=== PATIENT | female | born 1990 | race Caucasian/White ===

== ENCOUNTER → 2016-08-16 | Outpatient (CLI) | payer MEDICARE, MEDICAID | LOC: SP 12:52 | PROVIDERS: ATTEND Internal Medicine | DX: I82.4Z2 Acute embolism and thrombosis of unspecified deep veins of left distal lower extremity (principal); M79.89 Other specified soft tissue disorders | CPT/HCPCS: 93970; 93971 ==

== ENCOUNTER 2016-08-27 00:24 | Emergency (ER) | payer MEDICARE, MEDICAID ==
[2016-08-27] MEDS ORDERED: VALACYCLOVIR HCL 500 MG TABLET PO ONE (03:32)
[2016-08-27] MEDS ORDERED: AZITHROMYCIN 250 MG TABLET PO ONE (03:33)
[2016-08-27] MEDS ORDERED: LIDOCAINE 1% INJ-PF (10 MG/ML) 30 ML SDV INFIL ONE (03:33)
[2016-08-27] MEDS ORDERED: CEFTRIAXONE INJ 250 MG VIAL IM ONE (03:33)
--- NOTE | 2016-08-27 04:01 | ER Document Report ---
ED General - General Chief Complaint: Fever Stated Complaint: POSSIBLE STD,FEVER,ABDOMINAL PAIN Notes: Patient is a 26-year-old female who presents with complaint of concern that she might have herpes. She's a previous history of herpes. She does have a sexual partner. She is sexually active. She did have a fever today of 102.8 in triage. She's also had a sore throat. No cough. No congestion. No vomiting. No diarrhea. No abdominal pain. No other complaints at this time. TRAVEL OUTSIDE OF THE [place] IN LAST 30 DAYS: No - Related Data Allergies/Adverse Reactions: ibuprofen [From Motrin] Allergy (Mild, Verified 10/29/13 16:16) itching acetaminophen [From Tylenol] Allergy (Verified 05/24/14 21:46) Past Medical History - Social History Smoking Status: Unknown if Ever Smoked Frequency of alcohol use: None Drug Abuse: None Family History: CAD - Father, CVA, DM, Hyperlipidemia, Hypertension Patient has suicidal ideation: No Patient has homicidal ideation: No - Past Medical History Cardiac Medical History: Reports: Hx DVT - right leg 2012, right arm jul 2015 on lovenox Renal/ Medical History: Reports: Hx Kidney Stones. Denies: Hx Peritoneal Dialysis Past Surgical History: Reports: Hx Section, Hx Kidney (Renal Surgery) - 2008 kidney stones - Immunizations Hx Diphtheria, Pertussis, Tetanus Vaccination: Yes Review of Systems - Review of Systems Notes: My Normal Review Basic REVIEW OF SYSTEMS: CONSTITUTIONAL : Fever EENT: Sore throat CARDIOVASCULAR: Denies chest pain. RESPIRATORY: Denies cough, cold, or chest congestion. Denies shortness of breath, difficulty breathing, or wheezing. GASTROINTESTINAL: Denies abdominal pain. Denies nausea, vomiting, or diarrhea. Denies constipation. Last BM: GENITOURINARY: Some dysuria FEMALE GENITOURINARY: Pain and lesions on vaginal area. MUSCULOSKELETAL: Denies neck or back pain or joint pain or swelling. SKIN: Denies rash or skin lesions. NEUROLOGICAL: Denies altered mental status or loss of consciousness. Denies headache. Denies weakness or paralysis or loss of use of either side. Denies problems with gait or speech. Denies sensory or motor loss. ALL OTHER SYSTEMS REVIEWED AND NEGATIVE. Physical Exam - Vital signs Vitals: Temp Pulse Resp BP Pulse Ox 102.8 F H 119 H 20 121/71 99 08/27/16 00:42 02/19/17 00:42 08/27/16 00:42 08/27/16 00:42 08/27/16 00:42 - Notes Notes: General Appearance: Well nourished, alert, cooperative, no acute distress, mild obvious discomfort. Vitals: reviewed, See vital signs table. Head: no swelling or tenderness to the head Eyes: PERRL, EOMI, Conjuctiva clear Mouth: No decreasd moisture Throat: Slightly erythematous pharynx. Neck: Supple, no neck tenderness, No thyromegaly Lungs: No wheezing, No rales, No rhonci, No accessory muscle use, good air exchange bilaterally. Heart: Normal rate, Regular rythm, No murmur, no rub Abdomen: Normal BS, soft, No rigidity, No abdominal tenderness, No guarding, no rebound, no abdominal masses, no organomegaly Pelvic: External genitalia has multiple excoriated lesions with redness and some abnormal drainage consistent with herpes. Extremities: strength 5/5 in all extremities, good pulses in all extremities, no swelling or tenderness in the extremities, no edema. Skin: warm, dry, appropriate color, no rash Neuro: speech clear, oriented x 3, normal affect, responds appropriately to questions. Course - Vital Signs Vital signs: Temp Pulse Resp BP Pulse Ox 102.8 F H 119 H 20 121/71 99 08/27/16 00:42 08/27/16 00:42 08/27/16 00:42 08/27/16 00:42 08/27/16 00:42 - Transfer of Care Notes: 08/27/16 05:45 Patient is rash or consistent with herpes infection. She'll be treated with acyclovir. She's encouraged to follow closely with her primary care doctor for reevaluation and continued treatment with acyclovir. She does have a fever upon arrival. She clinically she looks very well and is not toxic or septic appearing. I feel that she is safe to be discharged home. Encourage her to return to ER she has any worsening of her symptoms or feels unwell. Patient strongly encouraged to talk to her sexual partner to have him to test. Patient agrees with plan and will be discharged home. Dictation of this chart was performed using voice recognition software; therefore, there may be some unintended grammatical errors. Discharge - Discharge Clinical Impression: Herpes Fever Qualifiers: Fever type: unspecified Qualified Code(s): R50.9 - Fever, unspecified Condition: Good Disposition: HOME, SELF-CARE Additional Instructions: Herpes Simplex You have been diagnosed as having a herpes virus infection. The herpes ( "cold sore") virus usually infects the areas around the mouth. However, it can cause infection on any skin surface. It's particularly dangerous if infection occurs in the eye. On the initial infection, herpes blisters erupt over a large area. There is usually fever and aching. This infection takes about 14 days to resolve. After the initial infection, herpes sores can erupt on small areas (usually the lips), then heal in about a week. Sunburn, fever, local irritation, or even emotions can provoke a "fever blister" attack of herpes. Initial herpes infections can be treated with medication if severe. Subsequent attacks are usually given only local care to reduce symptoms; however , the physician may decide to prescribe anti-viral medication if your case warrants it. Call the doctor if you are worsening in any way. Please return to ER immediately if you have worsening fevers not responding to Tylenol, spreading of your rash, or if you feel that you are worsening in any way. Please take the medication as prescribed. Please follow-up with your physician early this week for reevaluation. After your initial course of acyclovir is completed they will most likely place you on a lower dose long- term course to help prevent recurrent outbreaks. Please inform your sexual partner to be treated. We did treat you prophylactically for gonorrhea and chlamydia. You can call [phone]. This phone number will give you the results of your gonorrhea and chlamydia culture. Prescriptions: Acyclovir [Acyclovir 400 mg Tablet] 400 mg PO TID #30 tablet Referrals: MARIBETH NEGRON MD [Primary Care Provider] - Follow up in 3-5 days
[2016-08-27] MEDS ORDERED: ONDANSETRON ODT 4 MG TAB (6 TAB/DSPK) PO PRN (05:12)
[2016-08-27] MEDS ORDERED: ONDANSETRON 4 MG TAB.RAPDIS ONE (05:14)
[2016-08-27 05:25] LABS: CHLAM PCR NOT DETECTED (NOT DETECT)
[2016-08-27 05:53] VITALS: BP 115/75
== END 2016-08-27 05:52 | disposition home or self-care (01) ==
LOC: ER 00:24
DX: R50.9 Fever, unspecified (principal); B00.9 Herpesviral infection, unspecified; J02.9 Acute pharyngitis, unspecified; R30.0 Dysuria; Z88.6 Allergy status to analgesic agent; Z86.718 Personal history of other venous thrombosis and embolism
CPT/HCPCS: 99284; 96372; 87070; 87880; 87491; 87591; A9270 ×3; J3490; J0696

== ENCOUNTER 2016-11-13 23:45 | Emergency (ER) | payer MEDICARE, MEDICAID ==
[2016-11-13 23:55] VITALS: BP 114/59
[2016-11-14] MEDS ORDERED: FAMOTIDINE 20 MG TABLET PO ONE (00:32)
[2016-11-14] MEDS ORDERED: DIPHENHYDRAMINE HCL 50 MG CAPSULE PO ONE (00:32)
--- NOTE | 2016-11-14 00:47 | ER Document Report ---
ED Skin Rash/Insect Bite/Abscs - General Chief Complaint: Insect Bite Stated Complaint: POSSIBLE ALLERGIC REACTION Time Seen by Provider: 11/14/16 00:05 Mode of Arrival: Ambulatory Information source: Patient Notes: 26-year-old female presented to ED for inset bites to both arms abdomen chest and back. States she went to her friend's house who had bedbugs and will fleas. States she came home with bug bites and has had morbid bite since she came home. States she saw some fleas in her house after she came home. TRAVEL OUTSIDE OF THE [place] IN LAST 30 DAYS: No - HPI Patient complains to provider of: Insect bite Onset: Yesterday Onset/Duration: Persistent Quality of pain: No pain Severity: None Pain Level: Denies Skin Character: Rash Quality of rash: Itchy Identify cause: Yes - states she went to her friend's house who had fleas Exacerbated by: Denies Relieved by: Denies Similar symptoms previously: No Recently seen / treated by doctor: No - Related Data Allergies/Adverse Reactions: ibuprofen [From Motrin] Allergy (Mild, Verified 11/13/16 23:55) itching acetaminophen [From Tylenol] Allergy (Verified 11/13/16 23:55) Past Medical History - General Information source: Patient - Social History Smoking Status: Never Smoker Cigarette use (# per day): No Chew tobacco use (# tins/day): No Smoking Education Provided: No Frequency of alcohol use: None Drug Abuse: None Lives with: Friend Family History: CAD - Father, CVA, DM, Hyperlipidemia, Hypertension Patient has suicidal ideation: No Patient has homicidal ideation: No - Past Medical History Cardiac Medical History: Reports: Hx DVT - right leg 2012, right arm jul 2015 on lovenox Pulmonary Medical History: Reports: None EENT Medical History: Reports: None Neurological Medical History: Reports: None Endocrine Medical History: Reports: Hx Hypothyroidism Renal/ Medical History: Reports: Hx Kidney Stones Malignancy Medical History: Reports: None GI Medical History: Reports: None Musculoskeltal Medical History: Reports None Skin Medical History: Reports None Psychiatric Medical History: Reports: None Traumatic Medical History: Reports: None Infectious Medical History: Reports: None Past Surgical History: Reports: Hx Section, Hx Kidney (Renal Surgery) - 2008 kidney stones - Immunizations Hx Diphtheria, Pertussis, Tetanus Vaccination: Yes Review of Systems - Review of Systems Constitutional: No symptoms reported EENT: No symptoms reported Cardiovascular: No symptoms reported Respiratory: No symptoms reported Gastrointestinal: No symptoms reported Genitourinary: No symptoms reported Female Genitourinary: No symptoms reported Musculoskeletal: No symptoms reported Skin: Other - Insect bites bilateral arms and legs abdomen chest and back Hematologic/Lymphatic: No symptoms reported Neurological/Psychological: No symptoms reported -: Yes All other systems reviewed and negative Physical Exam - Vital signs Vitals: Temp Pulse Resp BP Pulse Ox 98.2 F 62 16 114/59 L 97 11/13/16 23:49 11/13/16 23:49 11/13/16 23:49 11/13/16 23:49 11/13/16 23:49 Interpretation: Normal - General General appearance: Appears well, Alert - HEENT Head: Normocephalic, Atraumatic Eyes: Normal Pupils: PERRL - Respiratory Respiratory status: No respiratory distress Chest status: Nontender Breath sounds: Normal Chest palpation: Normal - Cardiovascular Rhythm: Regular Heart sounds: Normal auscultation Murmur: No - Abdominal Inspection: Normal Distension: No distension Bowel sounds: Normal Tenderness: Nontender Organomegaly: No organomegaly - Back Back: Normal, Nontender - Extremities General upper extremity: Normal inspection, Nontender, Normal color, Normal ROM , Normal temperature General lower extremity: Normal inspection, Nontender, Normal color, Normal ROM , Normal temperature, Normal weight bearing. No: Aidan's sign - Neurological Neuro grossly intact: Yes Cognition: Normal Orientation: AAOx4 [place] Coma Scale Eye Opening: Spontaneous Raheem Coma Scale Verbal: Oriented [place] Coma Scale Motor: Obeys Commands Raheem Coma Scale Total: 15 Speech: Normal Motor strength normal: LUE, RUE, LLE, RLE Sensory: Normal - Psychological Associated symptoms: Normal affect, Normal mood - Skin Skin Temperature: Warm Skin Moisture: Dry Skin Color: Normal Location of irregularity: Abdomen, Chest, Back, Extremities - Patient with the friend's house who had fleas she saw the fleas jumping after she came home she saw the fleas on in her house. Course - Vital Signs Vital signs: Temp Pulse Resp BP Pulse Ox 98.2 F 62 16 114/59 L 97 11/13/16 23:49 11/13/16 23:49 11/13/16 23:49 11/13/16 23:49 11/13/16 23:49 Discharge - Discharge Clinical Impression: insect bites multiple sites not infected Condition: Stable Disposition: HOME, SELF-CARE Instructions: Family Physicians / Practices Additional Instructions: Insect Bites You have been bitten by an insect. These bites can cause two types of swelling: an initial swelling due to insect saliva or injected poison, and a late reaction due to your body's allergic reaction. This initial local reaction may be uncomfortable but is not dangerous. Often there's an itchy "hive" at the bite location. This is treated with antihistamines, cold compresses, and resting the affected body part. The later reaction often develops about the second day. The entire area becomes very swollen, red, itchy, and tender. This is an allergic reaction. Your body is attacking the leftover insect saliva or venom. This type of allergy is unpleasant, but not dangerous. We treat this swelling with cortisone -type medicine. Sometimes we use antibiotics if we're worried about infection. Antihistamines help with the itch. If you develop a fever, chills, a red streak, or swollen glands in the area of the bite, infection may be starting. Return at once. ACID-SUPPRESSING MEDICATION: You have a prescription for medicine which reduces the stomach's secretion of acid. Examples include Zantac, Tagament, and Pepcid. These drugs are often used to allow healing of ulcers or esophagitis. They may be needed to prevent recurrence of ulcers in some patients, or to prevent damage from acid reflux in the esophagus. Take all medication as prescribed, even after the pain is gone. Regular antacids may be added as needed if you have symptoms while taking this medicine. These medications sometimes are prescribed for allergic reactions because they have anti-histaminic effects and relieve the rash and itching of the reaction. There are usually no side effects from this medication. But, in rare cases and particularly in the elderly, serious problems can occur. Contact your doctor if there is fever, rash, hallucinations, confusion, or unusual bruising. Contact your doctor at once if you develop lightheadedness, black or bloody stool, or bloody vomitus. USE OF DIPHENHYDRAMINE: The use of diphenhydramine (Benadryl) has been recommended to control allergic symptoms. The 25 mg strength is available over- the-counter, as well as the elixir. This antihistamine is used for many symptoms. It's useful for itching, watering eyes and nose, allergic swelling, hives, and insect stings. The medication can be repeated four times daily. Age Elixir (12.5 mg/tsp) 25 mg pill 2-3 yr 1/2 tsp 4-8 yr 1 tsp 9-14 yr 2 tsp one tab adult 1-2 tabs Antihistamines may cause drowsiness, especially with the first dose. Do not operate machinery or drive while under the effects of the medication. Do not combine the medication with alcohol, or with any other medication without talking to your doctor. FOLLOW-UP CARE: If you have been referred to a physician for follow-up care, call the physician s office for an appointment as you were instructed or within the next two days. If you experience worsening or a significant change in your symptoms, notify the physician immediately or return to the Emergency Department at any time for re-evaluation. Referrals: ASHLYN GUNN MD [Primary Care Provider] - Follow up as needed
== END 2016-11-14 00:48 | disposition home or self-care (01) ==
LOC: ER 23:45
DX: S40.862A Insect bite (nonvenomous) of left upper arm, initial encounter (principal); S40.861A Insect bite (nonvenomous) of right upper arm, initial encounter; S30.861A Insect bite (nonvenomous) of abdominal wall, initial encounter; S20.369A Insect bite (nonvenomous) of unspecified front wall of thorax, initial encounter; W57.XXXA Bitten or stung by nonvenomous insect and other nonvenomous arthropods, initial encounter; Y92.009 Unspecified place in unspecified non-institutional (private) residence as the place of occurrence of the external cause; Z88.6 Allergy status to analgesic agent
CPT/HCPCS: 99281; A9270 ×2

== ENCOUNTER 2016-12-24 18:11 | Emergency (ER) | payer MEDICARE, MEDICAID ==
--- NOTE | 2016-12-24 18:17 | ER Document Report ---
ED Medical Screen (RME) - General Stated Complaint: ALTERED MENTAL STATUS Time Seen by Provider: 12/24/16 18:14 Mode of Arrival: Wheelchair TRAVEL OUTSIDE OF THE [place] IN LAST 30 DAYS: No - HPI Patient complains to provider of: altered mental status Notes: 12/24/16 18:16 26-year-old female brought to the emergency room by a friend for complaints of altered mental status, patient had to be taken out of a private vehicle by security and nursing staff, she states that she feels tingly all over - Related Data Allergies/Adverse Reactions: ibuprofen [From Motrin] Allergy (Mild, Verified 11/13/16 23:55) itching acetaminophen [From Tylenol] Allergy (Verified 11/13/16 23:55) Past Medical History - Past Medical History Cardiac Medical History: Reports: Hx DVT - right leg 2012, right arm jul 2015 on lovenox Endocrine Medical History: Reports: Hx Hypothyroidism Renal/ Medical History: Reports: Hx Kidney Stones. Denies: Hx Peritoneal Dialysis Past Surgical History: Reports: Hx Section, Hx Kidney (Renal Surgery) - 2008 kidney stones - Immunizations Hx Diphtheria, Pertussis, Tetanus Vaccination: Yes
[2016-12-24 19:32] LABS: APPEARANCE,URINE SLIGHTLY-CLOUDY; BILIRUBIN,URINE NEGATIVE (NEGATIVE); GLUCOSE, URINE NEGATIVE (NEGATIVE); KETONES,URINE NEGATIVE (NEGATIVE); LEUKOCYTE ESTERASE,URINE TRACE (NEGATIVE); NITRITE,URINE NEGATIVE (NEGATIVE); PROTEIN,URINE NEGATIVE (NEGATIVE); URINE SPECIFIC GRAVITY 1.023
[2016-12-24 19:41] LABS: ABSOLUTE EOSINOPHILS # (AUTO) 0.1 10^3/uL (0.0-0.6); ABSOLUTE LYMPHOCYTES (AUTO) 1.8 10^3/uL (0.5-4.7); ABSOLUTE MONOCYTES (AUTO) 0.4 10^3/uL (0.1-1.4); ABSOLUTE NEUT (AUTO) 5.6 10^3/uL (1.7-8.2); BASOPHILS % (AUTO) 0.5 % (0-2); HEMATOCRIT 45.2 % (36.0-47.0); HEMOGLOBIN 14.9 g/dL (12.0-15.5); HGB HCT DIFFERENCE -0.5; LYMPHOCYTES % (AUTO) 22.5 % (13-45); MEAN CORPUSCULAR HEMOGLOBIN 29.3 pg (27.0-33.4); MEAN CORPUSCULAR VOLUME 89 fl (80-97); MONOCYTES % (AUTO) 5.2 % (3-13); RED BLOOD COUNT 5.08 10^6/uL (3.72-5.28); RED CELL DISTRIBUTION WIDTH 13.7 % (11.5-14.0); SEGMENTED NEUTROPHILS % (AUTO) 70.8 % (42-78); WHITE BLOOD COUNT 7.9 10^3/uL (4.0-10.5)
[2016-12-24 19:48] LABS: ALANINE AMINOTRANSFERASE 33 U/L (9-52); ALBUMIN 4.6 g/dL (3.5-5.0); ALKALINE PHOSPHATASE 105 U/L (38-126); ANION GAP 15 (5-19); ASPARTATE AMINO TRANSFERASE 31 U/L (14-36); BILIRUBIN,DIRECT 0.4 mg/dL (0.0-0.4); BILIRUBIN,TOTAL 0.8 mg/dL (0.2-1.3); BLOOD UREA NITROGEN 11 mg/dL (7-20); CALCIUM 9.4 mg/dL (8.4-10.2); CARBON DIOXIDE 25 mmol/L (22-30); CHLORIDE 105 mmol/L (98-107); GLUCOSE 102 mg/dL (75-110); POTASSIUM 4.3 mmol/L (3.6-5.0); SODIUM 145.4 mmol/L (137-145); TOTAL PROTEIN 8.2 g/dL (6.3-8.2)
[2016-12-24 20:33] LABS: URINE BARBITURATES SCREEN NEGATIVE; URINE METHADONE SCREEN NEGATIVE; URINE OPIATES LOW NEGATIVE; URINE PHENCYCLIDINE SCREEN NEGATIVE
[2016-12-24] MEDS ORDERED: NORMAL SALINE 1000 ML 1,000 ML IV ONE (21:18)
--- NOTE | 2016-12-24 21:23 | ER Document Report ---
ED General - General Chief Complaint: Altered Mental Status Stated Complaint: ALTERED MENTAL STATUS Time Seen by Provider: 12/24/16 18:14 Mode of Arrival: Wheelchair Notes: Patient is a 26-year-old female that comes emergency department for chief complaint of "altered mental status". I asked patient if she can tell me what is going on if she states her "sugar problems". She states she thinks she has diabetes. Friend states that she noticed that when patient was lying down just before arrival that she closed her eyes and stopped responding. Friend states she thinks she passed out, she states she did not appear to be sleeping and was difficult to arouse. No fall or head injury. No fever, vomiting, or current symptoms reported. Upon arrival to the emergency department patient was apparently helped out of the car and complaining of feeling tingling in her extremities. Patient states she takes a blood thinner for history of DVT which developed while she was . TRAVEL OUTSIDE OF THE [place] IN LAST 30 DAYS: No - Related Data Allergies/Adverse Reactions: ibuprofen [From Motrin] Allergy (Mild, Verified 12/24/16 18:21) itching acetaminophen [From Tylenol] Allergy (Verified 12/24/16 18:21) Past Medical History - General Information source: Patient, Friend - Social History Smoking Status: Never Smoker Chew tobacco use (# tins/day): No Frequency of alcohol use: None Drug Abuse: None Lives with: Family Family History: CAD - Father, CVA, DM, Hyperlipidemia, Hypertension - Past Medical History Cardiac Medical History: Reports: Hx DVT - right leg 2012, right arm jul 2015 on lovenox Endocrine Medical History: Reports: Hx Hypothyroidism Renal/ Medical History: Reports: Hx Kidney Stones. Denies: Hx Peritoneal Dialysis Past Surgical History: Reports: Hx Section, Hx Kidney (Renal Surgery) - 2008 kidney stones - Immunizations Hx Diphtheria, Pertussis, Tetanus Vaccination: Yes Review of Systems - Review of Systems Constitutional: See HPI EENT: No symptoms reported Cardiovascular: See HPI Respiratory: No symptoms reported Gastrointestinal: No symptoms reported Genitourinary: No symptoms reported Female Genitourinary: No symptoms reported Musculoskeletal: No symptoms reported Skin: No symptoms reported Hematologic/Lymphatic: No symptoms reported Neurological/Psychological: See HPI Physical Exam - Vital signs Vitals: Temp Pulse Resp BP Pulse Ox 99 F 73 18 123/83 100 12/24/16 18:13 12/24/16 18:13 12/24/16 18:13 12/24/16 18:13 12/24/16 18:13 Interpretation: Normal - General General appearance: Appears well, Alert In distress: None - HEENT Head: Normocephalic, Atraumatic Eyes: Normal Extraocular movements intact: Yes Eyelashes: Normal Pupils: PERRL Nasal: Normal Mouth/Lips: Normal Mucous membranes: Normal Pharynx: Normal Neck: Normal - Respiratory Respiratory status: No respiratory distress Chest status: Nontender Breath sounds: Normal Chest palpation: Normal - Cardiovascular Rhythm: Regular. No: Tachycardia Heart sounds: Normal auscultation, S1 appreciated, S2 appreciated Murmur: No - Abdominal Inspection: Normal Distension: No distension Bowel sounds: Normal Tenderness: Nontender Organomegaly: No organomegaly - Back Back: Normal, Nontender - Extremities General upper extremity: Normal inspection, Nontender, Normal color, Normal ROM , Normal temperature General lower extremity: Normal inspection, Nontender, Normal color, Normal ROM , Normal temperature, Normal weight bearing. 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 Workup is also completely unremarkable including CBC, chemistry, urinalysis, urine drug screen, alcohol. Patient was given IV fluids. EKG sinus rhythm, normal CT interval, no T-wave inversion or ST segment changes in consecutive leads. On reexamination patient does not have any symptoms. She does ask questions, mainly about having diabetes and possibly needing treatments for this , I explained to her that she does not have evidence of this now, she should perform a glucose fasting test with primary. Patient's symptoms actually sound as if she was falling asleep, no syncopal episodes reported, no seizure symptoms reported, no headache, no indication for CT of the head or additional workup at this time. Discussed return precautions in detail, patient states understanding and agreement. - Vital Signs Vital signs: Temp Pulse Resp BP Pulse Ox 98.2 F 73 17 117/69 98 12/24/16 22:54 12/24/16 22:54 12/24/16 22:54 12/24/16 22:54 12/24/16 22:54 - Laboratory Result Diagrams: 12/24/16 19:08 12/24/16 19:03 Laboratory results interpreted by me: 12/24/16 12/24/16 19:03 19:03 Sodium 145.4 H Urine Urobilinogen 4.0 H Ur Leukocyte Esterase TRACE H Discharge - Discharge Clinical Impression: Transient alteration of awareness Condition: Stable Disposition: HOME, SELF-CARE Additional Instructions: Your workup today is normal other than showing some dehydration. Continue to rehydrate at home. The exact cause of your symptoms is uncertain, because of your recent sporadic blood sugars I recommend a fasting blood sugar with your primary care physician , follow-up with them for additional evaluation as well. Return to emergency department for any concerning symptoms including severe headache, fever, or any other concerning or worsening symptoms. Referrals: ASHLYN GUNN MD [Primary Care Provider] - Follow up as needed
[2016-12-24 23:03] VITALS: BP 117/69
--- NOTE | 2016-12-25 10:19 | EKG REPORT ---
SEVERITY:- ABNORMAL ECG - SINUS RHYTHM LAD, CONSIDER LEFT ANTERIOR FASCICULAR BLOCK : Confirmed by: Ana Francisco MD 25-Dec-2016 10:18:56
== END 2016-12-24 23:03 | disposition home or self-care (01) ==
LOC: ER 18:11
DX: R40.4 Transient alteration of awareness (principal); R20.2 Paresthesia of skin; I82.409 Acute embolism and thrombosis of unspecified deep veins of unspecified lower extremity; Z79.02 Long term (current) use of antithrombotics/antiplatelets; Z88.6 Allergy status to analgesic agent
CPT/HCPCS: 93005; 99285; 96360; 36415; 87086; 82962; 80307 ×2; 85025; 81025; 80053; 81001; 93010; J7030

== ENCOUNTER 2016-12-28 17:09 | Emergency (ER) | payer MEDICARE, OTHER, MEDICAID ==
[2016-12-28 18:25] LABS: ABSOLUTE EOSINOPHILS # (AUTO) 0.1 10^3/uL (0.0-0.6); ABSOLUTE LYMPHOCYTES (AUTO) 1.9 10^3/uL (0.5-4.7); ABSOLUTE MONOCYTES (AUTO) 0.4 10^3/uL (0.1-1.4); ABSOLUTE NEUT (AUTO) 6.4 10^3/uL (1.7-8.2); BASOPHILS % (AUTO) 0.5 % (0-2); EOSINOPHILS % (AUTO) 0.7 % (0-6); HEMATOCRIT 45.3 % (36.0-47.0); HEMOGLOBIN 15.1 g/dL (12.0-15.5); LYMPHOCYTES % (AUTO) 21.4 % (13-45); MEAN CORPUSCULAR HEMOGLOBIN 29.7 pg (27.0-33.4); MEAN CORPUSCULAR HGB CONC 33.3 g/dL (32.0-36.0); MEAN CORPUSCULAR VOLUME 89 fl (80-97); MONOCYTES % (AUTO) 4.2 % (3-13); RED BLOOD COUNT 5.07 10^6/uL (3.72-5.28); RED CELL DISTRIBUTION WIDTH 13.9 % (11.5-14.0); SEGMENTED NEUTROPHILS % (AUTO) 73.2 % (42-78); WHITE BLOOD COUNT 8.7 10^3/uL (4.0-10.5)
[2016-12-28 18:38] LABS: ALANINE AMINOTRANSFERASE 32 U/L (9-52); ALBUMIN 5.1 g/dL (3.5-5.0); ALCOHOL < 10 mg/dL (NONE DETECTED); ALKALINE PHOSPHATASE 109 U/L (38-126); ANION GAP 14 (5-19); ASPARTATE AMINO TRANSFERASE 25 U/L (14-36); BILIRUBIN,DIRECT 0.3 mg/dL (0.0-0.4); BILIRUBIN,TOTAL 0.9 mg/dL (0.2-1.3); BLOOD UREA NITROGEN 13 mg/dL (7-20); CALCIUM 9.9 mg/dL (8.4-10.2); CARBON DIOXIDE 29 mmol/L (22-30); CHLORIDE 101 mmol/L (98-107); CREATININE RESULT 0.94 mg/dL (0.52-1.25); GLUCOSE 81 mg/dL (75-110); POTASSIUM 3.9 mmol/L (3.6-5.0); SODIUM 144.3 mmol/L (137-145); TOTAL PROTEIN 9.2 g/dL (6.3-8.2)
[2016-12-28 19:03] LABS: APPEARANCE,URINE CLOUDY; BILIRUBIN,URINE NEGATIVE (NEGATIVE); GLUCOSE, URINE NEGATIVE (NEGATIVE); KETONES,URINE NEGATIVE (NEGATIVE); LEUKOCYTE ESTERASE,URINE SMALL (NEGATIVE); NITRITE,URINE NEGATIVE (NEGATIVE); PROTEIN,URINE 30 mg/dL (NEGATIVE); URINE SPECIFIC GRAVITY 1.015; UROBILINOGEN,URINE NEGATIVE mg/dL (<2.0)
[2016-12-28 19:07] LABS: URINE BARBITURATES SCREEN NEGATIVE; URINE METHADONE SCREEN NEGATIVE; URINE OPIATES LOW NEGATIVE; URINE PHENCYCLIDINE SCREEN NEGATIVE
--- NOTE | 2016-12-28 19:14 | ER Document Report ---
ED General - General Chief Complaint: Psych Problem Stated Complaint: SUICIDAL IDEATION Time Seen by Provider: 12/28/16 18:12 Mode of Arrival: Medic Information source: Patient Notes: 26-year-old female with hx of anxiety bipolar depression presents after wanting to harm herself by overdosing on her blood thinner meds. pt states she did not take the meds , denies any other attempts. TRAVEL OUTSIDE OF THE U.S. IN LAST 30 DAYS: No - HPI Onset: Just prior to arrival Onset/Duration: Sudden Quality of pain: No pain Severity: Mild Pain Level: Denies Associated symptoms: Other Exacerbated by: Denies Relieved by: Denies Similar symptoms previously: Yes Recently seen / treated by doctor: Yes - Related Data Allergies/Adverse Reactions: ibuprofen [From Motrin] Allergy (Mild, Verified 12/28/16 17:17) itching Past Medical History - Social History Smoking Status: Never Smoker Cigarette use (# per day): No Chew tobacco use (# tins/day): No Smoking Education Provided: No Family History: CAD - Father, CVA, DM, Hyperlipidemia, Hypertension Patient has suicidal ideation: Yes Patient has homicidal ideation: No - Past Medical History Cardiac Medical History: Reports: Hx DVT - right leg 2012, right arm jul 2015 on lovenox Endocrine Medical History: Reports: Hx Hypothyroidism Renal/ Medical History: Reports: Hx Kidney Stones. Denies: Hx Peritoneal Dialysis Past Surgical History: Reports: Hx Section, Hx Kidney (Renal Surgery) - 2008 kidney stones - Immunizations Hx Diphtheria, Pertussis, Tetanus Vaccination: Yes Review of Systems - Review of Systems Notes: REVIEW OF SYSTEMS: CONSTITUTIONAL : Denies fever, chills, or sweats. Denies recent illness. EENT: Denies eye, ear, throat, or mouth pain or symptoms. Denies nasal or sinus congestion or discharge. Denies throat, tongue, or mouth swelling or difficulty swallowing. CARDIOVASCULAR: Denies chest pain. Denies palpitations or racing or irregular heart beat. Denies ankle edema. RESPIRATORY: Denies cough, cold, or chest congestion. Denies shortness of breath, difficulty breathing, or wheezing. GASTROINTESTINAL: Denies abdominal pain or distention. Denies nausea, vomiting , or diarrhea. Denies blood in vomitus, stools, or per rectum. Denies black, tarry stools. Denies constipation. GENITOURINARY: Denies difficulty urinating, painful urination, burning, frequency, blood in urine, or discharge. FEMALE GENITOURINARY: Denies vaginal bleeding, heavy or abnormal periods, irregular periods. Denies vaginal discharge or odor. MUSCULOSKELETAL: Denies back or neck pain or stiffness. Denies joint pain or swelling. SKIN: Denies rash, lesions or sores. HEMATOLOGIC : Denies easy bruising or bleeding. LYMPHATIC: Denies swollen, enlarged glands. NEUROLOGICAL: Denies confusion or altered mental status. Denies passing out or loss of consciousness. Denies dizziness or lightheadedness. Denies headache. Denies weakness or paralysis or loss of use of either side. Denies problems with gait or speech. Denies sensory loss, numbness, or tingling. Denies seizures. PSYCHIATRIC: admits to depression , SI ALL OTHER SYSTEMS REVIEWED AND NEGATIVE. PHYSICAL EXAMINATION: GENERAL: Well-appearing, well-nourished and in no acute distress. HEAD: Atraumatic, normocephalic. EYES: Pupils equal round and reactive to light, extraocular movements intact, conjunctiva are normal. ENT: Nares patent, oropharynx clear without exudates. Moist mucous membranes. NECK: Normal range of motion, supple without lymphadenopathy LUNGS: Breath sounds clear to auscultation bilaterally and equal. No wheezes rales or rhonchi. HEART: Regular rate and rhythm without murmurs ABDOMEN: Soft, nontender, nondistended abdomen. No guarding, no rebound. No masses appreciated. Female : deferred Musculoskeletal: Normal range of motion, no pitting or edema. No cyanosis. NEUROLOGICAL: Cranial nerves grossly intact. Normal speech, normal gait. Normal sensory, motor exams PSYCH: SI SKIN: Warm, Dry, normal turgor, no rashes or lesions noted. Dictation was performed using [employer] voice recognition software Physical Exam - Vital signs Vitals: Temp Pulse Resp BP Pulse Ox 98.3 F 65 16 120/71 98 12/28/16 17:13 12/28/16 17:13 12/28/16 17:13 12/28/16 17:13 12/28/16 17:13 Course - Re-evaluation Re-evalutation: 12/29/16 02:04 pt is medically stable but will require a mental health evaluation and will be held IVC as a result of her thoughts of wanting to harm herself - Vital Signs Vital signs: Temp Pulse Resp BP Pulse Ox 98.6 F 59 L 16 95/52 L 98 12/28/16 23:51 12/28/16 23:51 12/28/16 23:51 12/28/16 23:51 12/28/16 23:51 - Laboratory Result Diagrams: 12/28/16 18:00 12/28/16 18:00 Laboratory results interpreted by me: 12/28/16 12/28/16 18:00 18:00 Total Protein 9.2 H Albumin 5.1 H Urine Protein 30 H Urine Blood SMALL H Ur Leukocyte Esterase SMALL H Salicylates < 1.0 L Acetaminophen < 10 L Discharge - Discharge Clinical Impression: Suicidal ideation Condition: Stable Disposition: PSYCH HOSP/UNIT
--- NOTE | 2016-12-29 03:55 | EKG REPORT ---
SEVERITY:- ABNORMAL ECG - SINUS RHYTHM LAD, CONSIDER LEFT ANTERIOR FASCICULAR BLOCK : Confirmed by: Ana Francisco MD 29-Dec-2016 03:54:56
--- NOTE | 2016-12-29 15:35 | ER Document Report ---
ED Psych Disorder / Suicide - General Mode of Arrival: Medic Information source: Patient, Friend TRAVEL OUTSIDE OF THE U.S. IN LAST 30 DAYS: No - HPI Patient complains to provider of: Suicidal ideation <AUBREE AMEZCUA - Last Filed: 12/29/16 15:15> <NAIPHOENIX - Last Filed: 12/30/16 14:40> - General Chief Complaint: Psych Problem Stated Complaint: SUICIDAL IDEATION Time Seen by Provider: 12/28/16 18:12 - HPI Notes: 26-year-old female with hx of anxiety bipolar depression presents after wanting to harm herself by overdosing on her blood thinner meds. pt states she did not take the meds , denies any other attempts. Patient disclosed she was brought to [facility] by [facility] because she wanted to kill herself. She states she has felt this way for about 1 week. She states her plan was to overdose on her blood thinners. Patient continued to disclose that she used to go to [facility] many years ago however was thinking about going to [facility]. She does disclose that she had an appointment however was unable to go to the appointment; patient confirms she did not call to cancel and was a no-show. Patient disclosed she has been diagnosed as bipolar. Patient states that she does not think she gets in manic state. She continued disclosed that she gets very depressed and then when she starts to feel better she has suicidal ideation continues going up and down in that pattern. Patient's boyfriend, Daniele Swann, stated that he called [facility] [employer] because the patient wrote a a letter to her friend saying she wanted to kill herself. He continued disclosed that approximately 4 days ago she had verbalized having a plan of taking her medication so he locked up all the medications in the home. He continued to disclose that the patient lives with himself, her best friend, and the friend's boyfriend. He disclosed that they all are agreeing to be part of the patient's discharge plan. He states that the patient will never be left alone, has no access to weapons or medications, and they will assist the patient in following up with outpatient services. He continued disclosed the trigger last night was patient spoke with her asked about their child. He currently has custody and every time they talk the patient ends up crying. Patient is alert and orientated to person place time and circumstance. Mood is euthymic with restricted affect. Patient endorses suicidal ideation with plan however patient has no means to follow through with plan and no intent. Patient denies homicidal ideation. Patient denies auditory and visual hallucinations; patient is not demonstrating any behaviors congruent with responding to internal stimuli. No delusions are noted. Thought process is currently organized and linear. Conversational speech was within normal rate tone and prosody. Eye contact was fair. Intellectual abilities appear to be within average range. Attention and concentration are fair. Insight, judgment , impulse control are fair. 293.80 (F31.9) unspecified bipolar and related disorder per history provided by patient Impression\plan: Patient is considered psychiatrically clear for discharge. Patient does not meet IVC criteria per [place] GS 122C. Patient's crisis was 4 days ago, but a letter she wrote then and the patient being upset after communications with her ex-significant other occurred last night resulted in [facility] being called. Patient lives with 3 other adults who all agreed to ensure to be part of the patient's discharge plan. Patient will not have access to medications or weapons and will follow up with mental health services. Patient is recommended to go to outpatient treatment at [facility] on Sunday01/01/[address] [place] was consulted on the care and management of this patient; attending physician in agreement with recommendations and disposition. (AUBREE AMEZCUA) - Related Data Allergies/Adverse Reactions: ibuprofen [From Motrin] Allergy (Mild, Verified 12/28/16 17:17) itching Past Medical History - General Information source: Patient - Social History Smoking Status: Never Smoker Cigarette use (# per day): No Chew tobacco use (# tins/day): No Family History: CAD - Father, CVA, DM, Hyperlipidemia, Hypertension Patient has suicidal ideation: Yes Patient has homicidal ideation: No - Past Medical History Cardiac Medical History: Reports: Hx DVT - right leg 2012, right arm jul 2015 on lovenox Endocrine Medical History: Reports: Hx Hypothyroidism Renal/ Medical History: Reports: Hx Kidney Stones. Denies: Hx Peritoneal Dialysis Past Surgical History: Reports: Hx Section, Hx Kidney (Renal Surgery) - 2008 kidney stones - Immunizations Hx Diphtheria, Pertussis, Tetanus Vaccination: Yes <AUBREE AMEZCUA - Last Filed: 12/29/16 15:15> Course - Laboratory Result Diagrams: 12/28/16 18:00 12/28/16 18:00 <AMEZCUAAUBREE - Last Filed: 12/29/16 15:15> - Laboratory Result Diagrams: 12/28/16 18:00 12/28/16 18:00 <EMILEE TRIMBLEMY - Last Filed: 12/30/16 14:40> - Vital Signs Vital signs: Temp Pulse Resp BP Pulse Ox 98.5 F 65 18 97/52 L 98 12/29/16 17:27 12/29/16 17:27 12/29/16 17:27 12/29/16 17:27 12/29/16 17:27 - Laboratory Laboratory results interpreted by me: 12/28/16 12/28/16 18:00 18:00 Total Protein 9.2 H Albumin 5.1 H Urine Protein 30 H Urine Blood SMALL H Ur Leukocyte Esterase SMALL H Salicylates < 1.0 L Acetaminophen < 10 L Discharge <AUBREE AMEZCUA - Last Filed: 12/29/16 15:15> <PHOENIX TRIMBLE - Last Filed: 12/30/16 14:40> - Discharge Clinical Impression: Suicidal ideation Bipolar disorder, unspecified Qualifiers: Active/Remission status: currently active Current bipolar episode type: depressed Current episode severity: unspecified Qualified Code(s): F31.30 - Bipolar disorder, current episode depressed, mild or moderate severity, unspecified Clinical Impression: (Ruled Out): Bipolar I disorder Condition: Stable Disposition: HOME, SELF-CARE Additional Instructions: DEPRESSION: Your evaluation reveals that you have mental depression. While symptoms may be vague, they often include disturbance of sleep, fatigue, loss of appetite , and general loss of interest in life. While depression may be a side effect of drugs, or a reaction to a major change in your life, many cases have no known cause. If depression is acute, and related to a major loss in your life, you can expect it to clear completely with time. If you have been depressed a long time , are prone to repeated bouts of depression or low mood, or have been thinking of suicide, get help. Depression can be treated with anti-depressant medication and counselling. Long-term depression will often take a few weeks to clear, even with appropriate medication. Follow-up care is important. SUICIDAL IDEATION: Suicidal ideation is a common medical term for thoughts about suicide, which may be as detailed as a formulated plan, without the suicidal act itself. Although most people who undergo suicidal ideation do not commit suicide, some go on to make suicide attempts. The range of suicidal ideation varies greatly from fleeting to detailed planning, role playing, and unsuccessful attempts. While thoughts about suicide are common, most people do not carry out serious actions to commit suicide. Based upon your evaluation and discussion with you, we do not believe you are currently at risk to act upon your thoughts of suicide. You have agreed to return to the Emergency Department, at any time , if you feel inclined to act upon your suicidal thoughts. FOLLOW-UP CARE: Please follow-up with [facility] on Sunday, January 01, 2017 at 8 AM for your mental health services. If you experience worsening or a significant change in your symptoms, notify the physician immediately or return to the Emergency Department at any time for re-evaluation. Referrals: [facility] [Provider Group] - 01/01/17 8:00 am
[2016-12-29 17:35] VITALS: BP 97/52
--- NOTE | 2016-12-29 18:12 | ER Document Report ---
Doctor's Note Notes: 12/29/16 18:12 Asked to see patient at the bedside by mental health in regards to discharging the patient. Review of records she is medically cleared as well as cleared by the mental health team to be discharged to outpatient follow-up. She and friend at bedside verbalizes understanding of where they are to follow up with. She is not suicidal homicidal and does not pose an immediate threat to herself or others in her current state. They verbalized full understanding of where they are going to be following up with an reasons for ED return sooner
== END 2016-12-29 18:15 | disposition home or self-care (01) ==
LOC: ER 17:09
DX: F32.9 Major depressive disorder, single episode, unspecified (principal); R45.851 Suicidal ideations; Z88.6 Allergy status to analgesic agent
CPT/HCPCS: 36415; 80053; 80307; 81001; 81025; 85025; 93005; 93010; 99284

== ENCOUNTER 2017-03-03 16:14 | Emergency (ER) | payer MEDICARE, MEDICAID ==
--- NOTE | 2017-03-03 16:49 | ER Document Report ---
HPI - HPI Patient complains to provider of: Losing voice yesterday Onset: Yesterday Onset/Duration: Sudden Pain Level: 2 Context: 26-year-old non-smoker female developed laryngitis yesterday before returning to [place]. She had been to [place]. No fever or chills. Minimal sore throat. No runny nose or cough. Associated Symptoms: None Exacerbated by: Denies Relieved by: Denies Similar symptoms previously: No Recently seen / treated by doctor: No - ROS ROS below otherwise negative: Yes Systems Reviewed and Negative: Yes All other systems reviewed and negative - REPRODUCTIVE Reproductive: DENIES: : - DERM Skin Color: Normal Past Medical History - General Information source: Patient - Social History Smoking Status: Never Smoker Frequency of alcohol use: None Drug Abuse: None Lives with: Family Family History: CAD - Father, CVA, DM, Hyperlipidemia, Hypertension - Past Medical History Cardiac Medical History: Reports: Hx DVT - right leg 2012, right arm jul 2015 on lovenox Endocrine Medical History: Reports: Hx Hypothyroidism Renal/ Medical History: Reports: Hx Kidney Stones. Denies: Hx Peritoneal Dialysis Past Surgical History: Reports: Hx Section, Hx Kidney (Renal Surgery) - 2008 kidney stones - Immunizations Hx Diphtheria, Pertussis, Tetanus Vaccination: Yes Vertical Provider Document - CONSTITUTIONAL Agree With Documented VS: Yes Exam Limitations: No Limitations - INFECTION CONTROL TRAVEL OUTSIDE OF THE U.S. IN LAST 30 DAYS: No - HEENT HEENT: Normocephalic, Pharyngeal Erythema - Minimal anterior pillars - NECK Neck: Supple. negative: Lymphadenopathy-Left, Lymphadenopathy-Right - RESPIRATORY Respiratory: Breath Sounds Normal, No Respiratory Distress O2 Sat by Pulse Oximetry: 99 - CARDIOVASCULAR Cardiovascular: Regular Rate, Regular Rhythm - MUSCULOSKELETAL/EXTREMETIES Musculoskeletal/Extremeties: MAEW, FROM - NEURO Level of Consciousness: Awake, Alert, Appropriate - DERM Integumentary: Warm, Dry, No Rash Course - Vital Signs Vital signs: Temp Pulse Resp BP Pulse Ox 98.4 F 65 20 118/57 L 99 03/03/17 16:18 03/03/17 16:18 03/03/17 16:18 03/03/17 16:18 03/03/17 16:18 Discharge - Discharge Clinical Impression: Laryngitis Condition: Good Disposition: HOME, SELF-CARE Instructions: Acetaminophen, Laryngitis ([facility]) Additional Instructions: voice rest throat gargle with salt water chloraseptic spray plenty of fluids to er if worse Please complete the patient satisfaction survey if you get one, and return it.. If you do not receive a survey, then you can go to the [facility] website, [email or web address] and place your comments about your very good care. Thank you very much. It was a pleasure being your medical provider today.
[2017-03-03 18:16] VITALS: BP 94/60
== END 2017-03-03 17:30 | disposition home or self-care (01) ==
LOC: ER 16:14
DX: J04.0 Acute laryngitis (principal)
CPT/HCPCS: 99282

== ENCOUNTER 2017-03-22 18:03 | Emergency (ER) | payer MEDICARE, MEDICAID ==
[2017-03-22 19:06] LABS: ABSOLUTE EOSINOPHILS # (AUTO) 0.1 10^3/uL (0.0-0.6); ABSOLUTE LYMPHOCYTES (AUTO) 1.6 10^3/uL (0.5-4.7); ABSOLUTE MONOCYTES (AUTO) 0.4 10^3/uL (0.1-1.4); BASOPHILS % (AUTO) 0.3 % (0-2); EOSINOPHILS % (AUTO) 0.6 % (0-6); HEMATOCRIT 42.1 % (36.0-47.0); HEMOGLOBIN 14.6 g/dL (12.0-15.5); HGB HCT DIFFERENCE 1.7; LYMPHOCYTES % (AUTO) 17.6 % (13-45); MEAN CORPUSCULAR HEMOGLOBIN 30.4 pg (27.0-33.4); MEAN CORPUSCULAR HGB CONC 34.8 g/dL (32.0-36.0); MEAN CORPUSCULAR VOLUME 87 fl (80-97); RED BLOOD COUNT 4.82 10^6/uL (3.72-5.28); RED CELL DISTRIBUTION WIDTH 13.6 % (11.5-14.0); SEGMENTED NEUTROPHILS % (AUTO) 77.5 % (42-78)
[2017-03-22 19:27] LABS: ALANINE AMINOTRANSFERASE 32 U/L (9-52); ALBUMIN 4.5 g/dL (3.5-5.0); ALKALINE PHOSPHATASE 103 U/L (38-126); ANION GAP 12 (5-19); ASPARTATE AMINO TRANSFERASE 22 U/L (14-36); BILIRUBIN,DIRECT 0.4 mg/dL (0.0-0.4); BILIRUBIN,TOTAL 0.7 mg/dL (0.2-1.3); BLOOD UREA NITROGEN 11 mg/dL (7-20); CALCIUM 9.8 mg/dL (8.4-10.2); CARBON DIOXIDE 28 mmol/L (22-30); CHLORIDE 103 mmol/L (98-107); GLUCOSE 92 mg/dL (75-110); SODIUM 142.8 mmol/L (137-145); TOTAL PROTEIN 7.6 g/dL (6.3-8.2)
[2017-03-22 19:29] LABS: ALCOHOL < 10 mg/dL (NONE DETECTED)
--- NOTE | 2017-03-22 20:06 | EKG REPORT ---
SEVERITY:- NORMAL ECG - SINUS RHYTHM : Confirmed by: Leila Contreras 22-Mar-2017 20:05:36
[2017-03-22 21:21] LABS: APPEARANCE,URINE SLIGHTLY-CLOUDY; BILIRUBIN,URINE NEGATIVE (NEGATIVE); GLUCOSE, URINE NEGATIVE (NEGATIVE); KETONES,URINE NEGATIVE (NEGATIVE); LEUKOCYTE ESTERASE,URINE TRACE (NEGATIVE); NITRITE,URINE NEGATIVE (NEGATIVE); PROTEIN,URINE NEGATIVE (NEGATIVE); URINE SPECIFIC GRAVITY 1.014; UROBILINOGEN,URINE NEGATIVE mg/dL (<2.0)
--- NOTE | 2017-03-22 21:24 | ER Document Report ---
ED General - General Chief Complaint: Overdose Stated Complaint: POSSIBLE OVERDOSE Time Seen by Provider: 03/22/17 18:32 Notes: Patient is a 26-year-old female with past medical history of bipolar disorder, depression, recurrent peripheral clots clinically anticoagulated on rivaroxaban who presents after taking a total of 80 mg of rivaroxaban apparently in a suicide attempt. The patient admits that when she took these medications she was uncertain of what would happen and denies especially wanting to the time of taking them. She did take them in front of her friend who subsequently called the police. She has never tried to implant this in the past although she does admit to frequent suicidal ideation. Her current triggers that she recently broke up with her "ex-baby daddy". She denies any acute medical complaints. She has not had any symptoms since taking her Xarelto. TRAVEL OUTSIDE OF THE [place]. IN LAST 30 DAYS: No - Related Data Allergies/Adverse Reactions: ibuprofen [From Motrin] Allergy (Mild, Verified 03/03/17 16:17) itching Home Medications: Current Home Medications No Home Medications 03/22/17 [History] Past Medical History - General Information source: Patient - Social History Smoking Status: Never Smoker Chew tobacco use (# tins/day): No Frequency of alcohol use: None Drug Abuse: None Lives with: Friend Family History: CAD - Father, CVA, DM, Hyperlipidemia, Hypertension - Past Medical History Cardiac Medical History: Reports: Hx DVT - right leg 2012, right arm jul 2015 on lovenox Endocrine Medical History: Reports: Hx Hypothyroidism Renal/ Medical History: Reports: Hx Kidney Stones. Denies: Hx Peritoneal Dialysis Past Surgical History: Reports: Hx Section, Hx Kidney (Renal Surgery) - 2008 kidney stones - Immunizations Hx Diphtheria, Pertussis, Tetanus Vaccination: Yes Review of Systems - Review of Systems Notes: Constitutional: Negative for fever. HENT: Negative for sore throat. Eyes: Negative for visual changes. Cardiovascular: Negative for chest pain. Respiratory: Negative for shortness of breath. Gastrointestinal: Negative for abdominal pain, vomiting or diarrhea. Genitourinary: Negative for dysuria. Musculoskeletal: Negative for back pain. Skin: Negative for rash. Neurological: Negative for headaches, weakness or numbness. 10 point ROS negative except as marked above and in HPI. Physical Exam - Vital signs Vitals: Temp Pulse Resp BP Pulse Ox 98.5 F 81 16 115/67 98 03/22/17 18:08 03/22/17 18:08 03/22/17 18:08 03/22/17 18:08 03/22/17 18:08 Interpretation: Normal Notes: PHYSICAL EXAMINATION: GENERAL: Well-appearing, well-nourished and in no acute distress. HEAD: Atraumatic, normocephalic. EYES: Pupils equal round and reactive to light, extraocular movements intact, sclera anicteric, conjunctiva are normal. ENT: nares patent, oropharynx clear without exudates. Moist mucous membranes. NECK: Normal range of motion, supple without lymphadenopathy LUNGS: Breath sounds clear to auscultation bilaterally and equal. No wheezes rales or rhonchi. HEART: Regular rate and rhythm without murmurs ABDOMEN: Soft, nontender, normoactive bowel sounds. No guarding, no rebound. No masses appreciated. EXTREMITIES: Normal range of motion, no pitting or edema. No cyanosis. NEUROLOGICAL: No focal neurological deficits. Moves all extremities spontaneously and on command. PSYCH: Normal mood, normal affect. SKIN: Warm, Dry, normal turgor, no rashes or lesions noted. Course - Re-evaluation Re-evalutation: 03/22/17 21:22 Patient presents after taking a total of 80 mg of rivaroxaban with unclear intention. She denies that this is an acute suicide attempt, admits she did this quite spontaneously, and was unsure of what would happen when she did it. She denies acute suicidal ideation at this time. No acute medical complaints. However, patient does have history of bipolar disorder, depression anxiety and is not currently followed by any psychiatric provider is currently off of all of her medications. She admits that this often makes it difficult to manage her activities of daily living due to her severe depression. She is also been intermittently failing to take her rivaroxaban which she attributes to her depression. For the recent reason I believe is appropriate for her to stay in the emergency department and be evaluated by psychiatry. She does not meet involuntary commitment criteria and she will remain voluntarily. - Vital Signs Vital signs: Temp Pulse Resp BP Pulse Ox 98.5 F 81 16 115/67 98 03/22/17 18:08 03/22/17 18:08 03/22/17 18:08 03/22/17 18:08 03/22/17 18:08 - Laboratory Result Diagrams: 03/22/17 18:30 03/22/17 18:30 Laboratory results interpreted by me: 03/22/17 03/22/17 18:30 21:00 Ur Leukocyte Esterase TRACE H Salicylates < 1.0 L Acetaminophen < 10 L - EKG Interpretation by Me Additional EKG results interpreted by me: 03/23/17 01:22 Normal sinus rhythm. Rate 74. No ST elevations or depressions. QTC is 435. Discharge - Discharge Clinical Impression: Suicide attempt Bipolar disorder Qualifiers: Active/Remission status: currently active Current bipolar episode type: mixed Current episode severity: unspecified Qualified Code(s): F31.60 - Bipolar disorder, current episode mixed, unspecified Condition: Fair Disposition: PSYCH HOSP/UNIT
[2017-03-22 21:28] LABS: URINE BARBITURATES SCREEN NEGATIVE; URINE METHADONE SCREEN NEGATIVE; URINE OPIATES LOW NEGATIVE; URINE PHENCYCLIDINE SCREEN NEGATIVE
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
[2017-03-23 10:18] VITALS: BP 110/70
== END 2017-03-23 10:19 | disposition home or self-care (01) ==
LOC: ER 18:03
DX: F31.60 Bipolar disorder, current episode mixed, unspecified (principal); T45.512A Poisoning by anticoagulants, intentional self-harm, initial encounter; Z65.8 Other specified problems related to psychosocial circumstances; Y92.009 Unspecified place in unspecified non-institutional (private) residence as the place of occurrence of the external cause; E03.9 Hypothyroidism, unspecified; Z86.718 Personal history of other venous thrombosis and embolism; Z87.442 Personal history of urinary calculi
CPT/HCPCS: 36415; 80053; 80307; 81001; 84703; 85025; 93005; 93010; 99284

== ENCOUNTER 2017-04-22 13:57 | Emergency (ER) | payer MEDICARE, MEDICAID ==
[2017-04-22 14:24] VITALS: BP 108/62
--- NOTE | 2017-04-22 15:00 | ER Document Report ---
ED General - General Chief Complaint: Allergic Reaction Stated Complaint: POSSIBLE ALLERGIC REACTION Time Seen by Provider: 04/22/17 14:48 Notes: Patient is a 26-year-old female that comes emergency department for chief complaint of possible medication side effects. She states that she has felt weak all day, she states that she has been dropping things, she reports shaking in her hands. Family members at bedside state they wonder she had a seizure or if she has diabetes. No vomiting, fever, dizziness, chest pain, shortness of breath, or abdominal pain reported. Patient was started on sertraline, prazosin , lamotrigine, gabapentin. She was started on it a week ago. Past medical history of bipolar, PTSD, anxiety/depression. TRAVEL OUTSIDE OF THE [place] IN LAST 30 DAYS: No - Related Data Allergies/Adverse Reactions: ibuprofen [From Motrin] Allergy (Mild, Verified 04/22/17 14:21) itching Past Medical History - General Information source: Patient, Relative - Social History Smoking Status: Never Smoker Chew tobacco use (# tins/day): No Frequency of alcohol use: None Drug Abuse: None Lives with: Family Family History: CAD - Father, CVA, DM, Hyperlipidemia, Hypertension - Past Medical History Cardiac Medical History: Reports: Hx DVT - right leg 2012, right arm jul 2015 on lovenox Endocrine Medical History: Reports: Hx Hypothyroidism Renal/ Medical History: Reports: Hx Kidney Stones. Denies: Hx Peritoneal Dialysis Psychiatric Medical History: Reports: Hx Depression - anxiety Past Surgical History: Reports: Hx Section, Hx Kidney (Renal Surgery) - 2008 kidney stones - Immunizations Hx Diphtheria, Pertussis, Tetanus Vaccination: Yes Review of Systems - Review of Systems Constitutional: See HPI EENT: No symptoms reported Cardiovascular: No symptoms reported Respiratory: No symptoms reported Gastrointestinal: No symptoms reported Genitourinary: No symptoms reported Female Genitourinary: No symptoms reported Musculoskeletal: No symptoms reported Skin: No symptoms reported Hematologic/Lymphatic: No symptoms reported Neurological/Psychological: See HPI Physical Exam - Vital signs Vitals: Temp Pulse Resp BP Pulse Ox 98.8 F 68 16 108/62 100 04/22/17 14:21 04/22/17 14:21 04/22/17 14:21 04/22/17 14:21 04/22/17 14:21 Interpretation: Normal - General General appearance: Appears well, Alert In distress: None - HEENT Head: Normocephalic, Atraumatic Eyes: Normal Pupils: PERRL - Respiratory Respiratory status: No respiratory distress Chest status: Nontender Breath sounds: Normal Chest palpation: Normal - Cardiovascular Rhythm: Regular Heart sounds: Normal auscultation Murmur: No - Abdominal Inspection: Normal Distension: No distension Bowel sounds: Normal Tenderness: Nontender Organomegaly: No organomegaly - Back Back: Normal, Nontender - Extremities General upper extremity: Normal inspection, Nontender, Normal color, Normal ROM , Normal temperature General lower extremity: Normal inspection, Nontender, Normal color, Normal ROM , Normal temperature, Normal weight bearing. 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 She is responsive, speaks quietly, is cooperative - Skin Skin Temperature: Warm Skin Moisture: Dry Skin Color: Normal Course - Re-evaluation Re-evalutation: Patient repeats at bedside that she feels weak which is unlike her usual. She has a normal neurological exam, no clonus, she is not postictal, she does not have reported symptoms consistent with a seizure. Vital signs unremarkable. Family members and patient persistent, morning laboratory workup, this was performed. CBC, chemistry unremarkable. Urinalysis shows some evidence of mild dehydration , has large leukocyte esterase and bacteria, is also somewhat contaminated with squamous epithelials. Discussed findings with patient and family. After discussion patient will be placed on Keflex despite possible inaccurate results , patient is to follow-up with her primary care and continue her current medications based on her evaluation and reported symptoms. Patient and family state understanding and agreement with this plan. - Vital Signs Vital signs: Temp Pulse Resp BP Pulse Ox 98.8 F 68 18 108/62 100 04/22/17 14:21 04/22/17 14:21 04/22/17 14:49 04/22/17 14:21 04/22/17 14:21 - Laboratory Result Diagrams: 04/22/17 15:43 04/22/17 15:43 Laboratory results interpreted by me: 04/22/17 04/22/17 15:43 15:59 Chloride 109 H Ur Leukocyte Esterase LARGE H Discharge - Discharge Clinical Impression: Weakness Condition: Stable Disposition: HOME, SELF-CARE Additional Instructions: Your workup shows some dehydration and possible urinary tract infection developing but no other abnormalities are seen with your blood tests. Your physical examination does not show any concerning findings. I recommend that you continue your current medications, follow-up with your primary care, and return to emergency department for any concerning or worsening symptoms including vomiting, fever, etc. Prescriptions: Cephalexin Monohydrate [Keflex 500 mg Capsule] 500 mg PO BID #10 capsule
[2017-04-22 15:51] LABS: ABSOLUTE BASOPHILS # (AUTO) 0.1 10^3/uL (0.0-0.2); ABSOLUTE EOSINOPHILS # (AUTO) 0.1 10^3/uL (0.0-0.6); ABSOLUTE LYMPHOCYTES (AUTO) 1.5 10^3/uL (0.5-4.7); ABSOLUTE MONOCYTES (AUTO) 0.5 10^3/uL (0.1-1.4); ABSOLUTE NEUT (AUTO) 3.8 10^3/uL (1.7-8.2); EOSINOPHILS % (AUTO) 1.5 % (0-6); HEMATOCRIT 38.8 % (36.0-47.0); HEMOGLOBIN 13.4 g/dL (12.0-15.5); HGB HCT DIFFERENCE 1.4; MEAN CORPUSCULAR HEMOGLOBIN 30.2 pg (27.0-33.4); MEAN CORPUSCULAR HGB CONC 34.5 g/dL (32.0-36.0); MEAN CORPUSCULAR VOLUME 88 fl (80-97); RED BLOOD COUNT 4.42 10^6/uL (3.72-5.28); RED CELL DISTRIBUTION WIDTH 13.8 % (11.5-14.0); SEGMENTED NEUTROPHILS % (AUTO) 63.5 % (42-78); WHITE BLOOD COUNT 5.9 10^3/uL (4.0-10.5)
[2017-04-22 16:08] LABS: ANION GAP 11 (5-19); BLOOD UREA NITROGEN 12 mg/dL (7-20); CALCIUM 8.9 mg/dL (8.4-10.2); CARBON DIOXIDE 25 mmol/L (22-30); CHLORIDE 109 mmol/L (98-107); GLUCOSE 86 mg/dL (75-110); POTASSIUM 3.8 mmol/L (3.6-5.0); SODIUM 144.8 mmol/L (137-145)
[2017-04-22 16:31] LABS: AMORPHOUS SEDIMENT,URINE TRACE /HPF; APPEARANCE,URINE CLOUDY; BILIRUBIN,URINE NEGATIVE (NEGATIVE); GLUCOSE, URINE NEGATIVE (NEGATIVE); KETONES,URINE NEGATIVE (NEGATIVE); LEUKOCYTE ESTERASE,URINE LARGE (NEGATIVE); NITRITE,URINE NEGATIVE (NEGATIVE); PROTEIN,URINE NEGATIVE (NEGATIVE); URINE SPECIFIC GRAVITY 1.027; UROBILINOGEN,URINE NEGATIVE mg/dL (<2.0)
[2017-04-22] MEDS ORDERED: CEPHALEXIN 500 MG CAPSULE PO ONE (16:36)
== END 2017-04-22 16:46 | disposition home or self-care (01) ==
LOC: ER 13:57
DX: R53.1 Weakness (principal); E03.9 Hypothyroidism, unspecified; Z87.442 Personal history of urinary calculi; Z88.6 Allergy status to analgesic agent; Z86.718 Personal history of other venous thrombosis and embolism; Z79.01 Long term (current) use of anticoagulants
CPT/HCPCS: 99285; 36415; 85025; 81025; 80048; 81001; A9270

== ENCOUNTER → 2017-06-18 | Outpatient (CLI) | payer MEDICARE, MEDICAID | LOC: OD 15:11 | PROVIDERS: ATTEND Nurse Practitioner Acute Care | DX: R30.0 Dysuria (principal) | CPT/HCPCS: 87086 ==

== ENCOUNTER 2017-08-24 18:13 | Emergency (ER) | payer MEDICARE, MEDICAID ==
[2017-08-24] MEDS ORDERED: CYCLOBENZAPRINE HCL 10 MG TABLET PO ONE (20:37)
[2017-08-24] MEDS ORDERED: LIDOCAINE 5% (700 MG) TRANSDERMAL ADH..PATCH TP ONE (20:37)
[2017-08-24] MEDS ORDERED: DEXAMETHASONE SOD PHOS INJ 10 MG/1 ML VIAL IM ONE (20:37)
--- NOTE | 2017-08-24 20:44 | ER Document Report ---
ED Neck/Back Problem - General Chief Complaint: Back Pain Stated Complaint: BACK PAIN Time Seen by Provider: 08/24/17 20:26 Mode of Arrival: Ambulatory Information source: Patient Notes: 27-year-old female presents to ED for low back pain with sciatica going to the right leg. 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 She denies loss of control of bowel bladder, she denies any loss of sensation to her legs, she denies any loss of control of her legs, and she denies any saddle anesthesia. Patient is able to walk with the even steady gait. TRAVEL OUTSIDE OF THE [place] IN LAST 30 DAYS: No - HPI Patient complains to provider of: Pain, Lower back Onset: Other - Chronic low back pain Onset: Chronic Timing: Worse Quality of pain: Sharp Severity: Moderate Pain Level: 3 Context: Lifting Recent injury: Possibly Associated symptoms: Like prior neck/back pain, Radiation to leg, Lower back pain - Right. denies: Constipation, Fever, Incontinence, Motor loss, Numbness/ tingling, Sensory loss, Sweaty, Unable to urinate, Upper back pain Exacerbated by: Movement of trunk, Sitting position Relieved by: Nothing Similar symptoms previously: Yes Recently seen / treated by doctor: No - Related Data Allergies/Adverse Reactions: ibuprofen [From Motrin] Allergy (Mild, Verified 08/24/17 18:15) itching Past Medical History - General Information source: Patient - Social History Smoking Status: Never Smoker Cigarette use (# per day): No Chew tobacco use (# tins/day): No Smoking Education Provided: No Frequency of alcohol use: None Drug Abuse: None 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 Lives with: Family Family History: Arthritis, CAD - Father, COPD, CVA, DM, Hyperlipidemia, Hypertension, Malignancy. denies: Thyroid Disfunction - Past Medical History Cardiac Medical History: Reports: Hx DVT - right leg 2012, right arm jul 2015 on Xarelto, left leg right arm 2018 Pulmonary Medical History: Reports: None EENT Medical History: Reports: None Neurological Medical History: Reports: None Endocrine Medical History: Reports: Hx Hypothyroidism Renal/ Medical History: Reports: Hx Kidney Stones Malignancy Medical History: Reports: None GI Medical History: Reports: None Musculoskeltal Medical History: Reports Hx Arthritis - Chronic back pain with sciatica, Reports Hx Musculoskeletal Deformity Skin Medical History: Reports None Psychiatric Medical History: Reports: Hx Depression - anxiety Traumatic Medical History: Reports: None Infectious Medical History: Reports: None Past Surgical History: Reports: Hx Section, Hx Kidney (Renal Surgery) - 2008 kidney stones Review of Systems - Review of Systems Notes: Constitutional: [PRESENT: as per HPI. ABSENT: chills, fever(s), headache(s), weight gain, weight loss] Eyes: [ABSENT: visual disturbances] Ears: [ABSENT: hearing changes] Cardiovascular: [ABSENT: chest pain, dyspnea on exertion, edema, orthropnea, palpitations] Respiratory: [ABSENT: cough, hemoptysis] Gastrointestinal: [ABSENT: abdominal pain, constipation, diarrhea, hematemesis, hematochezia, nausea, vomiting] denies loss of control of bowel or bladder Genitourinary: [ABSENT: dysuria, hematuria] Musculoskeletal: [ABSENT: joint swelling] complains of low back pain, across the buttocks, with pain going down her right leg Integumentary: [ABSENT: rash, wounds] Neurological: [ABSENT: abnormal gait, abnormal speech, confusion, dizziness, focal weakness, syncope] denies any signs or symptoms of cauda equina, no loss of sensation to the legs, no saddle anesthesia, Psychiatric: [ABSENT: anxiety, depression, homicidal ideation, suicidal ideation ] Endocrine: [ABSENT: cold intolerance, heat intolerance, menstrual abnormalities , polydipsia, polyuria] Hematologic/Lymphatic: [ABSENT: easy bleeding, easy bruising, lymphadenopathy] Physical Exam - Vital signs Vitals: Temp Pulse BP Pulse Ox 98.8 F 67 101/59 L 97 08/24/17 18:26 18 18:26 08/24/17 18:26 08/24/17 18:26 - Notes Notes: PHYSICAL EXAMINATION: GENERAL: 27-year-old well-appearing, well-nourished female in no acute distress. HEAD: Atraumatic, normocephalic. EYES: Pupils equal round and reactive to light, extraocular movements intact, conjunctiva are normal. ENT: Nares patent, oropharynx clear without exudates. Moist mucous membranes. NECK: Normal range of motion, supple without lymphadenopathy LUNGS: Breath sounds clear to auscultation bilaterally and equal. No wheezes rales or rhonchi. HEART: Regular rate and rhythm without murmurs ABDOMEN: Soft, nontender, nondistended abdomen. No guarding, no rebound. No masses appreciated. Female : deferred Musculoskeletal: Normal range of motion, no pitting or edema. No cyanosis. Tenderness to the lower back left and right and vertebral. Tenderness across the right buttocks down the right leg NEUROLOGICAL: Cranial nerves grossly intact. Normal speech, normal gait. Normal sensory, motor exams PSYCH: Normal mood, normal affect. SKIN: Warm, Dry, normal turgor, no rashes or lesions noted. Course - Re-evaluation Re-evalutation: 08/24/17 20:44 Patient denies any saddle anesthesia, any loss control of bowel bladder, denies any loss of sensation to the leg or control of legs. Patient has no signs or symptoms of cauda equina. Patient treated with Toradol Lidoderm and Flexeril while in the emergency room for her low back pain with sciatica to the right. Patient was instructed on use of ice and warm packs, back exercises, and use of muscle relaxers and Lidoderm patches. Patient to follow-up with her primary doctor. - Vital Signs Vital signs: Temp Pulse Resp BP Pulse Ox 98.0 F 63 16 110/66 96 08/24/17 21:53 08/24/17 21:53 08/24/17 21:53 08/24/17 21:53 08/24/17 21:53 Discharge - Discharge Clinical Impression: Low back pain with right-sided sciatica Qualifiers: Chronicity: chronic Back pain laterality: bilateral Qualified Code(s): M54.41 - Lumbago with sciatica, right side Condition: Stable Disposition: HOME, SELF-CARE Additional Instructions: Chronic Back Pain Chronic back pain (pain persisting longer than three months) is a common problem. A medical evaluation can look for herniated disc, arthritis, osteoporosis, tumors, and infections. But at least half the time, there's no obvious treatable cause. Anxiety and depression tend to worsen back pain. Ibuprofen or other anti-inflammatory medicine can help. A heating pad, used for 15-20 minutes at a time, can ease pain. For this type of back pain, narcotic medicines should be avoided. Muscle relaxers are rarely helpful unless you're having spasms. Activity is important. Find an aerobic exercise program that your back can tolerate. Too much rest makes back pain worse. Specific back exercises are usually prescribed to strengthen the back and abdominal muscles. Often, a physical therapist can help. Avoid heavy lifting, working while bent over, or standing with both knees straight. Most back pain patients do better with a firm mattress. If new symptoms of a "herniated disc" (radiation of pain, numbness, or tingling down the back of the leg or weakness in the leg) occur, you should be re-examined. Sciatica Your symptoms suggest "sciatica." The pain of sciatica typically radiates down the leg. Numbness in the foot or calf may also occur. Sciatica is caused by irritation of the sciatic nerve or its branches. The irritation can be due to a herniated disk in the spine, swelling and inflammation in the muscles surrounding the sciatic nerve, or direct injury of the nerve itself. Most cases of sciatica will resolve with medical treatment. Bed rest is usually recommended initially. Surgery is only necessary when the condition will not improve with rest and antiinflammatory medication. Muscle relaxers are often given if muscle soreness is present. A CAT scan of the back may be performed if a herniated disk is suspected. Re-examination is necessary if you develop increasing numbness, localized weakness in the foot or ankle, or if the pain does not respond to rest. Muscle Relaxers Muscle relaxing medications are usually prescribed for acute muscle spasm or injury to the neck and back. They are often combined with antiinflammatory pain medication for increased relief. You may stop the muscle relaxer when the pain and stiffness have improved. Start the medication again if spasms recur. Muscle relaxers may cause drowsiness, especially with the first dose. Do not operate machinery or drive while under the effects of the medication. Most muscle relaxers last up to 24 hours. Do not combine the medication with alcohol. Stretching Exercises for the Back The physician has recommended that you begin stretching exercises for your back. These are often used even while the back is painful. However, you should notify the physician if the activities seem to increase your pain. PELVIC TILT: Lie flat on your back with knees bent. Tighten your stomach and buttock muscles so it flattens your lower back against the floor. Hold 10 seconds. Repeat 10 times, twice daily. KNEE RAISE: Lying on the back with knees bent, raise one knee to your chest, then the other. Hold both knees against the chest 10 seconds, then lower one knee at a time. Repeat 10 times, twice daily. PARTIAL TRUNK RAISE: Lie face down, arms at your sides. Keeping your waist on the floor, use your arms raise your chest up. Support yourself on your elbows for 30 seconds. Repeat twice daily, increasing the time to two minutes as you recover. FOLLOW-UP CARE: If you have been referred to a physician for follow-up care, call the physician s office for an appointment as you were instructed or within the next two days. If you experience worsening or a significant change in your symptoms, notify the physician immediately or return to the Emergency Department at any time for re-evaluation. Prescriptions: Cyclobenzaprine HCl [Flexeril 10 mg Tablet] 10 mg PO TIDP PRN #15 tab PRN Reason: Lidocaine [Lidoderm 5% (700 mg) Transdermal Patch] 1 patch TP DAILY #30 adh..patch Forms: Return to Work Referrals: MARIBETH NEGRON MD [Primary Care Provider] - Follow up as needed
[2017-08-24 21:59] VITALS: BP 110/66
== END 2017-08-24 21:59 | disposition home or self-care (01) ==
LOC: ER 18:13
DX: M54.41 Lumbago with sciatica, right side (principal); M54.9 Dorsalgia, unspecified; M79.604 Pain in right leg; G89.29 Other chronic pain; Z86.718 Personal history of other venous thrombosis and embolism; Z79.01 Long term (current) use of anticoagulants
CPT/HCPCS: 99283; J1100

== ENCOUNTER → 2017-12-02 | Outpatient (CLI) | payer MEDICARE, MEDICAID | LOC: LAB 11:56 | PROVIDERS: ATTEND Emergency Medicine | DX: R30.0 Dysuria (principal) | CPT/HCPCS: 87086; 87088; 87186 ==

== ENCOUNTER → 2018-05-02 | Outpatient (CLI) | payer MEDICARE, MEDICAID ==
--- NOTE | 2018-05-02 16:13 | XCELERA REPORT ---
[address] [address] Upper Extremity Venous Evaluation Name: JEWEL JACOBS Age: 27 yrs Gender: Female : 1990 Patient Status: Outpatient Patient Location: Study Date: 05/02/2018 10:58 AM Procedure: Unilateral duplex scan of the right upper extremity veins was performed, including responses to compression and other maneuvers. Reason For Study: RUE SWELLING/PAIN Ordering Physician: DARYA HENRY Performed By: Bala Tolentino Right Side Venous Evaluation Normal vessel filling wall to wall, compression and augmentation as well as Colour flow down to the forearm veins. Interpretation Summary No duplex evidence of DVT or obstruction in the right upper extremity. No deep or superficial thrombosis noted. : DARYA HENRY > Bud Dennis
== END ==
LOC: SP 10:42
PROVIDERS: ATTEND Internal Medicine
DX: M79.601 Pain in right arm (principal); M79.89 Other specified soft tissue disorders
CPT/HCPCS: 93971

== ENCOUNTER 2018-05-05 21:18 | Emergency (ER) | payer MEDICARE, MEDICAID ==
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
[2018-05-05] MEDS ORDERED: ONDANSETRON 4 MG TAB.RAPDIS PO ONE (22:05)
[2018-05-05] MEDS ORDERED: ACETAMINOPHEN 325 MG TABLET PO ONE (22:05)
--- NOTE | 2018-05-05 22:44 | RADIOLOGY REPORT (SQ) ---
CT HEAD WITHOUT IV CONTRAST HISTORY: Head injury on anticoagulation. Leg numbness. COMPARISON: None. TECHNIQUE: CT scan of the brain without contrast. This exam was performed according to our departmental dose-optimization program, which includes automated exposure control, adjustment of the mA and/or kV according to patient size and/or use of iterative reconstruction technique. Study limited by streak artifact. FINDINGS: The ventricles, cisterns, and sulci are age-appropriate. No acute infarction, intracranial hemorrhage, midline shift, or extra-axial fluid collection is identified. No air-fluid levels in the paranasal sinuses. Calvarium is intact. IMPRESSION: No acute intracranial abnormality.
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
[2018-05-05 22:59] VITALS: BP 112/63
== END 2018-05-05 22:58 | disposition home or self-care (01) ==
LOC: ER 21:18
DX: S00.83XA Contusion of other part of head, initial encounter (principal); S00.03XA Contusion of scalp, initial encounter; R51 Headache; R20.0 Anesthesia of skin; Y04.2XXA Assault by strike against or bumped into by another person, initial encounter; Y93.89 Activity, other specified; I82.409 Acute embolism and thrombosis of unspecified deep veins of unspecified lower extremity; Z79.01 Long term (current) use of anticoagulants; Z88.6 Allergy status to analgesic agent
CPT/HCPCS: 99284; 70450; A9270 ×2; S0119

== ENCOUNTER → 2018-05-24 | Outpatient (CLI) | payer MEDICARE, MEDICAID ==
[2018-05-24 10:32] LABS: ABSOLUTE EOSINOPHILS # (AUTO) 0.1 10^3/uL (0.0-0.6); ABSOLUTE MONOCYTES (AUTO) 0.4 10^3/uL (0.1-1.4); ABSOLUTE NEUT (AUTO) 3.5 10^3/uL (1.7-8.2); BASOPHILS % (AUTO) 0.8 % (0-2); EOSINOPHILS % (AUTO) 2.2 % (0-6); HEMATOCRIT 40.2 % (36.0-47.0); LYMPHOCYTES % (AUTO) 32.6 % (13-45); MEAN CORPUSCULAR HEMOGLOBIN 30.8 pg (27.0-33.4); MEAN CORPUSCULAR HGB CONC 34.9 g/dL (32.0-36.0); MEAN CORPUSCULAR VOLUME 88 fl (80-97); MONOCYTES % (AUTO) 6.3 % (3-13); PLATELET COUNT 222 10^3/uL (150-450); RED BLOOD COUNT 4.55 10^6/uL (3.72-5.28); RED CELL DISTRIBUTION WIDTH 13.2 % (11.5-14.0); SEGMENTED NEUTROPHILS % (AUTO) 58.1 % (42-78); TOTAL CELLS COUNTED % (AUTO) 100 %; WHITE BLOOD COUNT 6.1 10^3/uL (4.0-10.5)
[2018-05-24 10:55] LABS: ALANINE AMINOTRANSFERASE 26 U/L (9-52); ALBUMIN 4.2 g/dL (3.5-5.0); ALKALINE PHOSPHATASE 83 U/L (38-126); ANION GAP 13 (5-19); ASPARTATE AMINO TRANSFERASE 25 U/L (14-36); BILIRUBIN,DIRECT 0.2 mg/dL (0.0-0.4); BILIRUBIN,TOTAL 0.5 mg/dL (0.2-1.3); BLOOD UREA NITROGEN 18 mg/dL (7-20); CALCIUM 9.3 mg/dL (8.4-10.2); CARBON DIOXIDE 25 mmol/L (22-30); CHLORIDE 105 mmol/L (98-107); GLUCOSE 98 mg/dL (75-110); POTASSIUM 4.6 mmol/L (3.6-5.0); SODIUM 143.4 mmol/L (137-145); TOTAL PROTEIN 7.6 g/dL (6.3-8.2); TRIGLYCERIDES 163 mg/dL (<150)
[2018-05-24 11:06] LABS: DIRECT LDL 99 mg/dL (<100)
[2018-05-24 11:09] LABS: VLDL CHOLESTEROL 32.6 mg/dL (10-31)
== END ==
LOC: OD 09:34
PROVIDERS: ATTEND Family Medicine Geriatric Medicine
DX: E03.9 Hypothyroidism, unspecified (principal); E66.9 Obesity, unspecified; I82.592 Chronic embolism and thrombosis of other specified deep vein of left lower extremity; Z79.899 Other long term (current) drug therapy
CPT/HCPCS: 36415; 80053; 80061; 84443; 85025

== ENCOUNTER → 2019-02-19 | Outpatient (CLI) | payer MEDICARE, MEDICAID ==
[2019-02-19 12:19] LABS: ABSOLUTE BASOPHILS # (AUTO) 0.1 10^3/uL (0.0-0.2); ABSOLUTE EOSINOPHILS # (AUTO) 0.1 10^3/uL (0.0-0.6); ABSOLUTE LYMPHOCYTES (AUTO) 1.8 10^3/uL (0.5-4.7); ABSOLUTE MONOCYTES (AUTO) 0.3 10^3/uL (0.1-1.4); BASOPHILS % (AUTO) 1.1 % (0-2); EOSINOPHILS % (AUTO) 1.9 % (0-6); HEMATOCRIT 39.8 % (36.0-47.0); HEMOGLOBIN 13.8 g/dL (12.0-15.5); LYMPHOCYTES % (AUTO) 34.7 % (13-45); MEAN CORPUSCULAR HEMOGLOBIN 30.6 pg (27.0-33.4); MEAN CORPUSCULAR HGB CONC 34.7 g/dL (32.0-36.0); MEAN CORPUSCULAR VOLUME 88 fl (80-97); MONOCYTES % (AUTO) 6.1 % (3-13); PLATELET COUNT 206 10^3/uL (150-450); RED BLOOD COUNT 4.51 10^6/uL (3.72-5.28); RED CELL DISTRIBUTION WIDTH 12.7 % (11.5-14.0); SEGMENTED NEUTROPHILS % (AUTO) 56.2 % (42-78); TOTAL CELLS COUNTED % (AUTO) 100 %; WHITE BLOOD COUNT 5.3 10^3/uL (4.0-10.5)
[2019-02-19 12:40] LABS: ANION GAP 9 (5-19); BLOOD UREA NITROGEN 14 mg/dL (7-20); CALCIUM 8.8 mg/dL (8.4-10.2); CARBON DIOXIDE 26 mmol/L (22-30); CHLORIDE 106 mmol/L (98-107); CHOLESTEROL 173.52 mg/dL (0-200); GLUCOSE 93 mg/dL (75-110); POTASSIUM 3.9 mmol/L (3.6-5.0); TRIGLYCERIDES 293 mg/dL (<150)
[2019-02-19 12:51] LABS: DIRECT LDL 109 mg/dL (<100)
[2019-02-19 13:01] LABS: VLDL CHOLESTEROL 58.6 mg/dL (10-31)
== END ==
LOC: LAB 12:00
PROVIDERS: ATTEND Family Medicine Geriatric Medicine
DX: J30.2 Other seasonal allergic rhinitis (principal); E78.1 Pure hyperglyceridemia; Z79.899 Other long term (current) drug therapy
CPT/HCPCS: 36415; 80048; 80061; 84443; 85025